=== PATIENT | male | born 1955 | race Two or more races ===

== ENCOUNTER → 2016-09-25 | Outpatient (CLI) | payer MEDICAID ==
[~2016-09-25] MED LIST: IBUPROFEN PO
[2016-09-25 15:23] LABS: HEMATOCRIT 27.6 % (38.0-50.0); HEMOGLOBIN 8.3 gm/dL (13.0-16.0); MEAN CELL VOLUME 73.2 FL (83-96); RED BLOOD COUNT 3.77 X10e (3.90-5.60); RED CELL DISTRIBUTION WIDTH 18.6 % (11.0-15.5)
[2016-09-25 16:07] LABS: ALBUMIN SERUM 3.4 g/dL (3.5-5.0); BILIRUBIN,TOTAL 0.8 mg/dL (0.2-2.0); BUN/CREATININE RATIO 18.57; CALCIUM SERUM 9.2 mg/dL (8.4-10.2); CREATININE SERUM 1.4 mg/dL (0.6-1.4); PROTEIN TOTAL SERUM 7.6 g/dL (6.0-8.3)
[2016-09-30 19:11] LABS: ANA SCREEN Positive (Negative); ANA TITER COMMENT Has been added (()); HA AB IGM (HEPPAN) Nonreactive (()); HB CORE AB IGM (HEPPAN) Nonreactive (Nonreactive); HB S AG (HEPPAN) Nonreactive (Nonreactive); HEP C AB (HEPPAN) Reactive (Nonreactive); HEP C AB SIGNAL TO CUTOFF 1.17 ratio (<1.00); NUCLEAR PATTERN (ANA) Homogeneous (())
== END | disposition home or self-care (01) ==
LOC: CLAB 14:42
PROVIDERS: Internal Medicine
DX: D64.9 Anemia, unspecified (principal); K74.60 Unspecified cirrhosis of liver
CPT/HCPCS: 36415; 80053; 80074; 82105; 83516; 83520; 85027; 86038; 86039; 87522